=== PATIENT | female | born 1980 | race Two or more races ===

== ENCOUNTER 2017-09-02 18:21 | Emergency (ER) | payer OTHER ==
[~2017-09-02] VITALS: Ht 177.8 cm; Wt 85.4 kg
[2017-09-02 21:22] VITALS: BP 145/104
== END 2017-09-02 21:23 | disposition home or self-care (01) ==
LOC: EME 18:21
DX: S80.11XA Contusion of right lower leg, initial encounter (principal); S16.1XXA Strain of muscle, fascia and tendon at neck level, initial encounter; S39.012A Strain of muscle, fascia and tendon of lower back, initial encounter; V49.40XA Driver injured in collision with unspecified motor vehicles in traffic accident, initial encounter; Y92.410 Unspecified street and highway as the place of occurrence of the external cause; M47.896 Other spondylosis, lumbar region
CPT/HCPCS: 72040; 72100; 73590; 99281; 99283